=== PATIENT | female | born 2000 | race Hispanic/Latino ===

== ENCOUNTER → 2024-02-07 | Outpatient (CLI) | payer OTHER | LOC: M EKG 13:21 | PROVIDERS: ATTEND Advanced Practice Midwife | DX: O24.311 Unspecified pre-existing diabetes mellitus in pregnancy, first trimester (principal); Z3A.14 14 weeks gestation of pregnancy; Z3A.16 16 weeks gestation of pregnancy; O99.211 Obesity complicating pregnancy, first trimester; E66.9 Obesity, unspecified ==